=== PATIENT | male | born 1980 | race Caucasian/White ===

== ENCOUNTER 2025-09-23 11:48 | Inpatient (IN) ==
[2025-09-23 12:32] LABS: Appearance Urine Clear (Clear); Glucose Urine UA Negative (Negative)
[2025-09-23 12:43] LABS: Hematocrit (blood only) 44.7 % (42.0-52.0); Hemoglobin 15.7 g/dl (14.0-18.0); Immature Granulocytes # (auto) 0.03 K/uL (0.01-0.20); Immature Granulocytes % (auto) 0.4 %; Mean Corpuscular Hemoglobin 28.6 pg (25.0-34.0); Mean Corpuscular Volume 81.6 fL (80.0-100.0); Platelet Count 279 K/uL (130-400); RDW Standard Deviation 36.0 fL (36.4-46.3); Red Blood Count 5.48 M/uL (4.70-6.10); White Blood Count 8.45 K/ul (4.8-10.8)
--- NOTE | 2025-09-23 12:50 | XRay Report ---
XR chest 1V portable CLINICAL HISTORY: pain COMPARISON STUDY: 12/15/2024 FINDINGS: Heart size and pulmonary vasculature are normal. No consolidation or pleural effusion. No p neumothorax. IMPRESSION: No acute findings. ACT 112: Negative or not required by law. Electronically signed by: Shravan Xavier M.D. 09/23/2025 12:49 PM
--- NOTE | 2025-09-23 12:56 | Emergency Department Note ---
Impression & Plan Paranoid, Acute anxiety, Chest pain, Delusions ED Provider Note NAME: SIRIA MAYER AGE: 45 SEX: M : 1980 ARRIVES VIA: Ambulance INFORMANT: Patient, the patient's father ED PROVIDER(S): Vincenzo Angela DO CHIEF COMPLAINT: Mental health evaluation HPI: The patient is a 45-year-old male who presented to the emergency department for mental health evaluation. The patient has been experiencing chest pain and anxiety. The patient thinks he is having an anxiety attack. He was seen in our facility recently for similar complaints. The patient's father came in the emergency department with him. He did arrive via ambulance. The patient denies having any difficulty breathing. He denies having any chest pain at this time. He does complain of anxiety. He also is having delusions. The patient is hearing voices and thinks that he is God. The patient denies any suicidal homicidal ideation. ROS: See above HPI for pertinent positives & negatives. A total of 10 systems reviewed and were otherwise negative. PAST MEDICAL HISTORY: See Below PAST SURGICAL HISTORY: See Below FAMILY HISTORY: See Below SOCIAL HISTORY: See Below HOME MEDICATIONS: See Below ALLERGIES: See Below VITALS: See Below PHYSICAL EXAMINATION: GENERAL: Patient is awake alert in no acute distress patient is resting comfortably and showing no signs of anxiety EYES: The conjunctivae are clear. The pupils are round and reactive. EARS, NOSE, MOUTH AND THROAT: The nose is without any evidence of any deformity. NECK: The neck is nontender and supple. RESPIRATORY: Normal respiratory effort is noted there is no evidence of wheezing rhonchi or rales CARDIOVASCULAR: Regular rate and rhythm noted there no murmurs rubs or gallops normal S1 normal S2. GASTROINTESTINAL: The abdomen is soft. Abdomen is nontender. MUSCULOSKELETAL/EXTREMITIES: There is no evidence of gross deformity full range of motion is noted in the hips and shoulders. SKIN: There is no obvious evidence of any rash. There are no petechiae, pallor or cyanosis noted. NEUROLOGIC: Patient is awake alert and oriented x3 strength is symmetric patellar reflexes are 2+ bilaterally PSYCH: The patient's affect is animated. The patient makes good eye contact mostly evaluation. Patient states that he is God and he is hearing voices from God as well. MEDICAL DECISION MAKING: The patient is a 45-year-old male who presented to the emergency department by ambulance. The patient was having anxiety. He was seen in our facility recently for similar complaints. The patient did have a full workup over the weekend but ultimately was found to be a good candidate for outpatient management. He returns today because of ongoing symptoms. His father is with him and is requesting evaluation and possible inpatient management. The patient was not complaining of chest pain but also anxiety. He has had delusions and hearing voices. The patient was medically cleared in the emergency department again. I did review the patient's previous workup which did include a CT of the brain. He was treated with anxiety medication in the emergency department. Ultimately the patient was felt to be a good candidate for inpatient management. He was agreeable to this plan. The patient was evaluated by the mental-health window caser. He is pending evaluation by [facility] S. Triage Nursing notes reviewed. Prior medical records reviewed Vital Signs: reviewed and remarkable for hypertension. Differential diagnosis: Mood disorder, infection, hypoglycemia, electrolyte abnormalities, cardiac sources, intracerebral event, toxicologic, trauma, neurologic, as well as other pathologies. ER treatment provided: See below Diagnostics interpreted by me: ECG: EKG was obtained in the emergency department. My interpretation is normal sinus rhythm at 89 bpm. There was no ectopy. There was no acute ST segment abnormalities noted. This was compared to a tracing from September 21, 2025. No changes were noted. Cardiac Monitoring: An order was placed for continuous cardiac monitoring. The monitor shows a rate of 76 bpm with sinus rhythm. Laboratory studies: As stated above and show below. Imaging studies: See below. Radiographic imaging was reviewed by myself Consultation(s): The patient was evaluated by the mental health window caser in the emergency department. The patient was signed out to Dr. Paul at change of shift. Please see his note for further disposition and treatment. Past Med/Surg History Problem List (Updated 09/23/25 @ 16:37 by Vincenzo Angela DO) Delusions (Acute) Chest pain (Acute) Acute anxiety (Acute) Acute post-traumatic stress disorder (Acute) Anxiety (Acute) Paranoid (Acute) Social History Smoking Status: Former smoker Hx Alcohol Use: No Hx Substance Use: No Preferred Language: Jamaican Feels Safe at Home: Yes Gender Identity: Female Allergies Allergies Allergy/AdvReac Type Severity Reaction Status Date / Time [id number] Allergy Unknown Uncoded 10/11/03 21:48 Home Meds Home Medications Medication Instructions Recorded Confirmed None (Patient States No Home Meds) ##0 05/26/06 Previous Rx's Medication Instructions Recorded hydroxyzine HCl 25 mg tablet 25 mg PO BID PRN anxiety #14 tabs 09/22/25 Results & Data (ED) Vital Signs Vital Signs - 24 hr 09/23/25 12:06 09/23/25 12:24 09/23/25 14:00 Temperature 36.5 C Temperature Source Oral Pulse Rate 87 85 Pulse Rate [Apical] 76 Respiratory Rate 14 14 Respiratory Effort / Characteristics Respiratory Depth Deep Respiratory Pattern Regular Blood Pressure 162/84 H Blood Pressure [Right Arm] 99/73 L Blood Pressure Mean 110 Blood Pressure Mean [Right Arm] 81 Pulse Oximetry 100 93 Oxygen Delivery Method Room Air Room Air Sepsis Recent Fever Within 48 Hours No Sepsis New/Unexplained Change in Mental Status N/A Sepsis Action Taken by Nursing No Action Required 09/23/25 16:00 Temperature Temperature Source Pulse Rate Pulse Rate [Apical] 76 Respiratory Rate 16 Respiratory Effort / Characteristics Non-Labored Spontaneous Respiratory Depth Respiratory Pattern Blood Pressure Blood Pressure [Right Arm] 142/84 H Blood Pressure Mean Blood Pressure Mean [Right Arm] 103 Pulse Oximetry 100 Oxygen Delivery Method Room Air Sepsis Recent Fever Within 48 Hours Sepsis New/Unexplained Change in Mental Status Sepsis Action Taken by Half-Way Medications Current Medication List: was personally reviewed by me Laboratory Data Attestation: I reviewed the patient's lab results. 09/23/25 12:26 09/23/25 12:26 Lab Results 09/23/25 09/23/25 Range/Units 11:59 12:26 WBC 8.45 (4.8-10.8) K/ul RBC 5.48 (4.70-6.10) M/uL Hgb 15.7 (14.0-18.0) g/dl Hct 44.7 (42.0-52.0) % MCV 81.6 (80.0-100.0) fL MCH 28.6 (25.0-34.0) pg MCHC 35.1 (32.0-36.0) g/dL RDW Std Deviation 36.0 L (36.4-46.3) fL RDW Coeff of Delphine 12.2 (11.5-14.5) % Plt Count 279 (130-400) K/uL MPV 10.0 (9.4-12.4) fL Immature Gran % (Auto) 0.4 % Neut % (Auto) 71.8 % Lymph % (Auto) 18.3 % [place] % (Auto) 8.6 % Eos % (Auto) 0.1 % Baso % (Auto) 0.8 % Neut # (Auto) 6.06 (1.40-6.50) K/uL Lymph # (Auto) 1.55 (1.20-3.40) K/uL [place] # (Auto) 0.73 H (0.11-0.59) K/uL Eos # (Auto) 0.01 (0.00-0.50) K/uL Baso # (Auto) 0.07 (0.00-0.20) K/uL Immature Gran # (Auto) 0.03 (0.01-0.20) K/uL Sodium 137 (136-145) mmol/L Potassium 3.7 (3.5-5.1) mmol/L Chloride 104 (98-107) mmol/L Carbon Dioxide 21 (21-32) mmol/L Anion Gap 12 H (3-11) BUN 16 (6-23) mg/dl Creatinine 1.08 (0.6-1.4) mg/dl Est Cr Clr Drug Dosing Not Reportable eGFR 86.78 BUN/Creatinine Ratio 14.8 (10-20) Glucose 91 (70-99(Fasting)) mg/dl Calcium 9.8 (8.6-10.3) mg/dl Total Bilirubin 0.7 (0.2-1.0) mg/dl AST 16 (13-39) U/L ALT 17 (7-52) U/L Alkaline Phosphatase 33 L (34-104) U/L Troponin I High Sens 3.0 (0-20) pg/ml Total Protein 7.6 (6.0-8.3) gm/dl Albumin 4.7 (3.4-5.0) gm/dl Globulin 2.9 (2.5-4.0) gm/dl Albumin/Globulin Ratio 1.6 (0.9-2) TSH 1.247 (0.300-4.500) uIu/ml Urine Color Yellow Urine Appearance Clear (Clear) Urine pH 6.0 (4.5-7.5) Ur Specific [place] 1.019 (1.000-1.030) Urine Protein Negative (Negative) Urine Glucose (UA) Negative (Negative) Urine Ketones Trace H (Negative) Urine Blood Negative (Negative) Urine Nitrite Negative (Negative) Urine Bilirubin Negative (Negative) Urine Urobilinogen Negative (Negative) Ur Leukocyte Esterase Negative (Negative) Urine Comment Salicylates < 3.0 L (3.0-30) mg/dl Urine Opiates Screen Neg (Neg) Ur Methadone, Qual Neg (Neg) Urine Fentanyl Screen Neg (Neg) Acetaminophen < 3 L (10-30) ug/ml Urine Barbiturates Neg (Neg) Ur Phencyclidine (PCP) Neg (Neg) U Amphetamin/Meth Scrn Neg (Neg) MDMA (Ecstasy) Screen Neg (Neg) U Benzodiazepines Scrn Neg (Neg) Ur Cocaine Metabolite Neg (Neg) U Marijuana (THC) Screen Neg (Neg) Ethyl Alcohol mg/dL < 10.0 (<10.0) mg/dl SARS-CoV-2, RNA, NAAT NEGATIVE (NEGATIVE) Administered Medications Discontinued Medications Lorazepam (Lorazepam 1 Mg Tab) 1 mg PO NOW STA Stop: 09/23/25 13:02 Last Admin: 09/23/25 13:05 Dose: 1 mg Documented By: QUAN Imaging Data Attestation: I personally reviewed and interpreted this imaging study as follows: My Impression: 1 view chest x-ray was obtained in the emergency department. My interpretation is no free air or definite infiltrate, final report below. Radiologist's Impression: Chest X-Ray 09/23/25 12:17 XR chest 1V portable CLINICAL HISTORY: pain COMPARISON STUDY: 12/15/2024 FINDINGS: Heart size and pulmonary vasculature are normal. No consolidation or pleural effusion. No pneumothorax. IMPRESSION: No acute findings. ACT 112: Negative or not required by law. Electronically signed by: Shravan Xavier M.D. 09/23/2025 12:49 PM Discharge Plan Visit Data Chief Complaint: Anxiety Stated Complaint: ANXIETY ED Provider: Vincenzo Angela Discharge Problem: Paranoid, Acute anxiety, Chest pain, Delusions Patient Disposition: Still a Patient Condition: Good Forms Stand Alone Forms: My [facility] Posterous, Suicide Prevention Resources Prescriptions Prescriptions: No Action None (Patient States No Home Meds) . Qty: 0 hydroxyzine HCl 25 mg tablet 25 mg PO BID PRN (Reason: anxiety) Qty: 14 0RF Referrals Referrals: Unknown,Unknown [] -
[2025-09-23] MEDS: LORazepam 1 MG TAB PO STA (13:05)
[2025-09-23 13:12] LABS: Amphetamines+Metham, Urine Neg (Neg); MDMA (Ecstacy), Urine Neg (Neg); Marijuana, Urine Neg (Neg)
[2025-09-23 13:14] LABS: Albumin Level 4.7 gm/dl (3.4-5.0); Anion Gap 12 (3-11); Bilirubin,Total 0.7 mg/dl (0.2-1.0); Calcium 9.8 mg/dl (8.6-10.3); Carbon Dioxide 21 mmol/L (21-32); Chloride 104 mmol/L (98-107); Potassium 3.7 mmol/L (3.5-5.1); Sodium 137 mmol/L (136-145)
[2025-09-23 13:18] LABS: Thyroid Stimulating Hormone 1.247 uIu/ml (0.300-4.500)
[2025-09-23 13:20] LABS: Alanine Aminotransferase 17 U/L (7-52); Albumin Globulin Ratio 1.6 (0.9-2); Alkaline Phosphatase 33 U/L (34-104); Blood Urea Nitrogen 16 mg/dl (6-23); Globulin 2.9 gm/dl (2.5-4.0); Glucose 91 mg/dl (70-99(Fasting)); Total Protein 7.6 gm/dl (6.0-8.3)
[2025-09-23 13:23] LABS: Acetaminophen < 3 ug/ml (10-30); Salicylate < 3.0 mg/dl (3.0-30)
[2025-09-23] MEDS ORDERED: SODIUM CHLORIDE 0.65% NA SOLN 45 ML (OCEAN) PRN (22:16)
[2025-09-23] MEDS ORDERED: BISMUTH SUBSALICYLATE 262 MG CHEW PO PRN (22:16)
[2025-09-23] MEDS ORDERED: ALUMINUM/MAGNESIUM SUSP 30 ML UDC PO PRN (22:16)
[2025-09-23] MEDS ORDERED: MAGNESIUM HYDROXIDE SUSP 30 ML UDC PO PRN (22:16)
[2025-09-23] MEDS: LORazepam 1 MG TAB PO PRN (23:25)
--- NOTE | 2025-09-24 08:51 | History & Physical ---
Date of Service September 24, 2025 Impression / Recommendations Impression OLIVERIO MAYER is a 45-year-old man who currently lives in [place] with his and four children, has no known psychiatric history, and was admitted on 09/23/25 21:10 on a 302 involuntary commitment for psychosis with paranoia. Diagnostically consistent with unspecified psychosis with differential including bipolar affective disorder current episode of maribell (paranoia, poor sleep, recent rapid speech, hyperreligious delusions, increased activity at home of running around the house but also with no family nor personal history of BPAD which is atypical to first present at age 45) versus primary psychotic disorder (less likely given his age and no prior history) versus brief psychotic disorder 2/2 insomnia/anxiety versus delusional disorder substance-induced (unlikely given denial of recent substance use, negative UDS) versus secondary to a medical cause (could explain new onset at his age but no focal neurological deficits, normal head CT, labwork unrevealing to date for infectious workup incl uding tic borne illnesses & no reason to suspect HIV/syphilis, heavy metal panel pending, no known risk factors for vitamin deficiencies, no current evidence for delirium, labwork stable and medical stable from perspective of multiple ED workups in recent days). Discussed medication treatment options in detail. Discussed risks, benefits and alternatives. Patient would like to start and consented to olanzapine for unspecified psychosis and insomnia and ativan prn for anxiety/insomnia. Reviewed side effects including but not limited to: movement (TD, NMS), cardiac (QTc prolongation), and metabolic (stroke, insulin resistance) and necessity for fasting lipid and glucose labwork and AIMS done with score of 0. MNPR-psychosis with prominent paranoia and focus on limiting sleep disruptions Overall I spent a total of 75 minutes for this admission including review of chart records, review of labwork, direct evaluation of the patient, counseling the patient, ordering medication, risk assessment, discussion with the psychiatric liason RN and documentation in the electronic health record. (1) Unspecified psychosis not due to a substance or known physiological condition: (2) Insomnia: (3) Delusions: (4) Anxiety: (5) Paranoid: Plan 09/24/2025: The patient was admitted to the [facility]) on q15 min checks (behavioral with suicide precautions) for safety. The patient will participate in group, recreational, and milieu therapies and will be offered additional individual and family sessions as clinically appropriate. -Start olanzapine 10mg HS -Ativan 1mg BID prn for anxiety/restlessness -fasting lipid panel, HbA1c, Vit D, Vit B12, folate, ESR, CRP -will hold off on HIV and syphilis testing at this point as he denies any risk for exposure Inventory Assets Strengths: supportive relationships, engaging so far in inpatient treatment despite 302 status Needs: safety and stabilization, medication adjustment, additional coping skills, increased outpatient services Suicide Risk Level Suicide Risk Level: Moderate (q15 min suicide checks) (denies SI but with new psychosis and periods of anxiety with panic attacks, feels safe in the hospital and feels able to alert staff if he needs support) Risk Factors Assessment Male: Yes : Yes Do You Have Access To A Gun?: No Health Problems: No Mental Health Diagnoses: Yes Substance Use Disorders: No Previous Attempt: No Family History of Suicide: No Previous Psychiatric Hospitalization: No Hopelessness: No Protective Factors Assessment Baptism Beliefs: Yes : Yes Responsible for Young Children: Yes Employed: Yes Stable Relationships: Yes Supportive Family: Yes Psychiatric History Identifying Data OLIVERIO MAYER is a 45-year-old man who currently lives in [place] with his and four children, has no known psychiatric history, and was admitted on 09/23/25 21:10 on a 302 involuntary commitment for psychosis with paranoia. Chief Complaint "I don't remember saying that". History of Present Illness Haider presents for psychiatric admission on an involuntary commitment following concerns for repeated ED visits over the last 3 days, insomnia, increased amish beliefs, hallucinations, paranoia and delusions in the context of social media triggers and sleep disturbance. Review of his ED notes over the past three days are notable for fears that the FBI has been poisoning him, worried he may have fathered children during high school that he doesn't know about, panic attacks, fear his son had been poisoned, and hearing the voice of God. Today he reports that his current difficulties began approximately a week ago when he saw pictures on Facebook of people he recognized which triggered memories of past relationships and led him to wonder if those experiences were "done on purpose"and " intentionally to mess with my head later on". He states he has decided to "delete Facebook and just live my life" as a result. Will has been experiencing significant insomnia for about 1 week prior to admission sleeping only a couple of hours per night with last night being the first full night of sleep he's had after taking prn doses of ativan and haldol. He reports increased anxiety during this period of insomnia. He denies any history of depression stating "I do not get like, depressed and have bad thoughts or anything. I just usually work with my life". He also denies any prior episodes of insomnia or psychiatric history describing this is his first experience with such symptoms. He denies any confusion with his poor sleep. He attributes his distress to looking through Facebook and seeing content related to "the kind of life I used to live" and realizing "there is kids out there that I will probably never know" which he believes "set me off". However reflects that he feels like he is just going to move past this now. He reports no other recent stressors besides discovering this content on social media. When asked about references to discussions he had with the ED case management about a friend who recently he states this was "a few years back" and does not identify this is a current stressor. Asked about recent increase in amish beliefs and hearing the voice of God he notes "I do not remember saying that" and denies any current amish beliefs. He expresses concerns about possibly having diabetes referencing that his primary care provider might be concerned about this and that his grandmother and maybe mother might have had diabetes. However he does not identify any current physical symptoms or issues that he is having besides the poor sleep. He denies any history of substance use disorder stating he quit drinking alcohol "a few months ago" after previously drinking "a few days a week". He denies any history of IV drug use nor any reason to suspect he could have ever been exposed to HIV or syphilis or other infectious diseases. He denies any symptoms of depression nor suicidal thoughts nor homicidal thoughts. He denies any side effects from the medication last night and is glad to have slept. He references that he might prefer not to take medication but is agre eable to trying olanzapine tonight and having Ativan available as needed as he wants to continue to sleep. He is not currently prescribed any psychiatric medications. Psychiatric ROS notable for no current nor history of symptoms of maribell, psychosis, PTSD, OCD nor eating disorder. Additional information per ED CM notes on 09/23/2025: "Met with patient to complete MH evaluation. Patient presented to ED with his father. He reports he was driving to work and began feeling anxious, panicked and had numbness to his hands and feet. He began having chest pain, and an ambulance was called. Patient states he has been to the ED the last three days with paranoia and anxiety. Patient very slow to answer, disorganized thoughts, and maintained prolonged eye contact. Patient expressed frustration when asked questions. He reports no previous MH history. He has no diagnosis. No previous inpatient treatment. Patients father answered many questions asked of patient. When asked who farooq ent lives with he named his step son and his , but needed guidance with mentioning his other three children. Patient denies any D/A use. No medication. No outside providers. Patient reports no legal issues. When asked about stressors patient began to panic, stating he needed time to think. Patients father stated he believes patient has been contacted on facebook by an individual who claims patient is her father. This has been causing issues between patient and his . Patient denies any SIB. No SI. No HI. He denies any health issues. He is unsure of a mental health history within his family. Patient denies aggression/violence. Patient reports a poor appetite. He states he has not been sleeping and is unsure when the last time he slept was. He states he has not been sleeping because he has been unable to shut his mind off. Patient reports feeling that his mind is wondering off, and that he cannot keep his thoughts straight. He reports paranoia, and feeling that someone is out to get him. Patient made mention of a friend Terrence who he believes set up a satanic cult that has been screwing with his head. He believes Terrence and his cult are attacking him on facebook, and are sharing pictures of kids online who look like him. Patient reports he has been doing a lot of reading in regards to adventist, and that he has been hearing spiritual voices. Patient reports the voices tell him to pray to God with all your heart and soul, and he repeated this three times. When asked if the voices are telling him to hurt himself or someone else, patient laughed and stated I am God. Patient denies access to any guns/weapons. Patient reported feeling very overwhelmed and anxious, he asked for medication to help him relax and sleep. Patient feels he is in need of inpatient treatment for his mental health at this time. He has had no recent travel. No illnesses or diseases. " and "Following discussion with ED CM/[facility] [place] Liaison/patient's family, it became clear that Oliverio was not voluntary for inpatient psychiatric treatment as originally thought. It appears that his paranoia and confusion have worsened throughout his ED course. Involuntary commitment/302 was petitioned for by this business case analyst encompassing concerns from the last three days of ED presentations: "Oliverio has presented to the Emergency Department three times over the last three consecutive days (Sep. , , and ) with complaints related to anxiety and paranoia. He holds persecutory delusions regarding the FBI and family friends being out to get him. He recently found out distressing news regarding parenting a child and has been spiraling since. He carries no mental health diagnoses, including psychosis. Beto family is extremely concerned about his acute change in personality and behavior. While initially requesting help and inpatient treatment, he grew increasingly paranoid and suspicious. He is forgetful of information and slow to respond to questions. Oliverio has had three medical workups at this point including a CT scan of his head. No medical abnormalities were found. On Tuesday, Oliverio was convinced that he was being poisoned and needed to keep running until the poison was out of his body. He has been sending family and friends text messages showing increased amish preoccupation and persecutory delusions. It is the opinion of this petitioner that Oliverio is experiencing psychosis with marked decompensation and will be at imminent risk of or serious bodily injury without the continued care and supervision of others. Having never experienced psychosis before, psychiatric intervention is necessary. Oliverio reports that prior to today, he was unsure when the last time he slept was. He reports he hasnt been eating and when he checked in on September 21, it was because he believed he was about to and was being poisoned. He attributed his friends recent to being murdered by the FBI and believed they were coming after him next. He notes he feels he was poisoned at a bar in May but was manipulated into thinking there was nothing wrong with him. Today, he was driving to work and called 911 due to anxiety and panic. He states he has been hearing spiritual voices telling him pray to God with all your heart and soul. When asked if the voices tell him to do anything else, he responded, I am God." Past Psychiatric History Current Psychiatric Diagnosis: NONE Outpatient Services: none Previous Psych Admissions: none Do You Have Access To A Gun?: No History of Previous Suicide Attempt: No Past Medication Trials: none Past Head Trauma/Neuro History History of Concussion/Seizure: Yes (no seizures, concussion in his youth) Allergies Allergy/AdvReac Type Severity Reaction Status Date / Time [id number] Allergy Unknown Uncoded 10/11/03 21:48 Home Medications Medication Instructions Recorded Confirmed Type None (Patient States No Home Meds) ##0 05/26/06 History hydroxyzine HCl 25 mg tablet 25 mg PO BID PRN anxiety #14 tabs 09/22/25 Rx Family History Family History of: Anxiety (maternal and paternal side) Alcohol History Hx of Alcohol Use Over the Past 12 Months: No AUDIT Total Score: 0 He denies any alcohol use in the last few weeks. Unclear how much he was drinking prior to this, he reports drinking "a few" days per week. Denies history of problematic drinking or legal charges/DUI or negative consequences in the past from alcohol use Smoking Use Have You Smoked or Used Tobacco Products in the Last 30 Days: No Smoking Status: Former smoker Substance History Hx of Prescription Med Misuse Over the Past 12 Months: No Hx of Over the Counter Med Misuse Over the Past 12 Months: No Hx of Inhalent Misuse Over the Past 12 Months: No Hx of Organic Substance Use Over the Past 12 Months: No Hx of Illegal Substances/Street Drug Use Over Past 12 Months: No Problems as a Result of Past Substance Use: None Identified Personal History Living Arrangements: Home 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[employer]) Marital Status: Number Of Children: 4-including step-child Beliefs That Will Affect Care: None Current Legal Problems: No Hx Legal Problems: No Hx Traumatic Life Events: No Patient History Social History Smoking Status: Former smoker Hx Alcohol Use: No Hx Substance Use: No Preferred Language: Northern Irish Communication Ability: Effective Supervisor Pipeline Maintenance Required: No Beliefs That Will Affect Care: None Feels Safe at Home: Yes Gender Identity: Male Assistive Devices: None Review of Systems Review of Systems: All systems reviewed & are unremarkable except as noted in HPI & below Physical Exam Psychiatric: Orientation: alert, oriented x 3 and + guarded Apperance: appropriately dressed and appropriately groomed Eye Contact: + fair eye contact Motor Behavior: no abnormal motor movements Speech: normal rate/rhythm/volume of speech Affect: + anxious affect; + mood not congruent with affect Mood: + anxious mood; no depressed mood Thought Process: + concrete thought process Thought Content: + paranoid (concerned about FBI, poisoning, wonders if he's fathered children via FB ) and + delusions (reported beliefs about being poisoned in recent days, belief he is God) Suicidal Thoughts: denies suicidal thoughts, denies suicidal plan and denies suicidal intent Homicidal Thoughts: denies homicidal thoughts Hallucinations: + auditory hallucinations (reported in the ED, doesn't appear to be responding to internal stimuli tod); no visual hallucinations Cognition: remote memory grossly intact and language grossly intact; + recent memory not intact and + attention not intact Estimated Intelligence: consistent with education level Insight: + limited insight Judgment: + limited judgement Vital Signs (Past 24 Hours): Last Vital Signs Temp 36.5 C 09/23/25 22:21 Pulse 86 09/23/25 22:21 Resp 18 09/23/25 22:21 BP 165/92 H 09/23/25 22:21 Pulse Ox 100 09/23/25 22:21 O2 Del Method Room Air 09/23/25 22:21 Exam Statement: A physical exam was performed in the ED by Dr. Angela for the purposes of medical clearance. I accept that physical as correct and adequate for the purposes of the inpatient physical exam. Results & Data ([facility]) Laboratory Results Laboratory Results - last 24 hr 09/23/25 09/23/25 09/23/25 11:59 12:26 12:56 WBC 8.45 RBC 5.48 Hgb 15.7 Hct 44.7 MCV 81.6 MCH 28.6 MCHC 35.1 RDW Std Deviation 36.0 L RDW Coeff of Delphine 12.2 Plt Count 279 MPV 10.0 Immature Gran % (Auto) 0.4 Neut % (Auto) 71.8 Lymph % (Auto) 18.3 Ellis % (Auto) 8.6 Eos % (Auto) 0.1 Baso % (Auto) 0.8 Neut # (Auto) 6.06 Lymph # (Auto) 1.55 Ellis # (Auto) 0.73 H Eos # (Auto) 0.01 Baso # (Auto) 0.07 Immature Gran # (Auto) 0.03 Sodium 137 Potassium 3.7 Chloride 104 Carbon Dioxide 21 Anion Gap 12 H BUN 16 Creatinine 1.08 Est Cr Clr Drug Dosing Not Reportable eGFR 86.78 BUN/Creatinine Ratio 14.8 Glucose 91 Calcium 9.8 Total Bilirubin 0.7 AST 16 ALT 17 Alkaline Phosphatase 33 L Troponin I High Sens 3.0 Total Protein 7.6 Albumin 4.7 Globulin 2.9 Albumin/Globulin Ratio 1.6 TSH 1.247 Urine Color Yellow Urine Appearance Clear Urine pH 6.0 Ur Specific [place] 1.019 Urine Protein Negative Urine Glucose (UA) Negative Urine Ketones Trace H Urine Blood Negative Urine Nitrite Negative Urine Bilirubin Negative Urine Urobilinogen Negative Ur Leukocyte Esterase Negative Urine Comment Salicylates < 3.0 L Urine Opiates Screen Neg Ur Methadone, Qual Neg Urine Fentanyl Screen Neg Acetaminophen < 3 L Urine Barbiturates Neg Ur Phencyclidine (PCP) Neg U Amphetamin/Meth Scrn Neg MDMA (Ecstasy) Screen Neg U Benzodiazepines Scrn Neg Ur Cocaine Metabolite Neg U Marijuana (THC) Screen Neg Ethyl Alcohol mg/dL < 10.0 Arsenic Pending Lead Pending Mercury Pending Anaplasma Smear A. phagocytophilum DNA Babesia Smear Babesia microti DNA PCR Lyme Disease Screen Ehrlichia DNA (PCR) Q Fever Phase I IgG Ab Q Fever Phase I IgM Ab Q Fever Phase II IgG Ab Q Fever Phase II IgM Ab Rickettsia IgG Ab Rickettsia IgM Ab SARS-CoV-2, RNA, NAAT NEGATIVE Typhus Fever IgG Ab Typhus Fever IgM Ab 09/23/25 21:17 WBC RBC Hgb Hct MCV MCH MCHC RDW Std Deviation RDW Coeff of Delphine Plt Count MPV Immature Gran % (Auto) Neut % (Auto) Lymph % (Auto) Ellis % (Auto) Eos % (Auto) Baso % (Auto) Neut # (Auto) Lymph # (Auto) Ellis # (Auto) Eos # (Auto) Baso # (Auto) Immature Gran # (Auto) Sodium Potassium Chloride Carbon Dioxide Anion Gap BUN Creatinine Est Cr Clr Drug Dosing eGFR BUN/Creatinine Ratio Glucose Calcium Total Bilirubin AST ALT Alkaline Phosphatase Troponin I High Sens Total Protein Albumin Globulin Albumin/Globulin Ratio TSH Urine Color Urine Appearance Urine pH Ur Specific [place] Urine Protein Urine Glucose (UA) Urine Ketones Urine Blood Urine Nitrite Urine Bilirubin Urine Urobilinogen Ur Leukocyte Esterase Urine Comment Salicylates Urine Opiates Screen Ur Methadone, Qual Urine Fentanyl Screen Acetaminophen Urine Barbiturates Ur Phencyclidine (PCP) U Amphetamin/Meth Scrn MDMA (Ecstasy) Screen U Benzodiazepines Scrn Ur Cocaine Metabolite U Marijuana (THC) Screen Ethyl Alcohol mg/dL Arsenic Lead Mercury Anaplasma Smear See Comment A. phagocytophilum DNA Pending Babesia Smear See Comment Babesia microti DNA PCR Pending Lyme Disease Screen Negative Ehrlichia DNA (PCR) Pending Q Fever Phase I IgG Ab Pending Q Fever Phase I IgM Ab Pending Q Fever Phase II IgG Ab Pending Q Fever Phase II IgM Ab Pending Rickettsia IgG Ab Pending Rickettsia IgM Ab Pending SARS-CoV-2, RNA, NAAT Typhus Fever IgG Ab Pending Typhus Fever IgM Ab Pending Current Inpatient Medications Current Inpatient Medications: Current Inpatient Medications Acetaminophen (Acetaminophen 325 Mg Tab) 650 mg PO Q4H PRN PRN Reason: Headache or Minor Fever Stop: 10/23/25 22:15 Al Hydrox/Mg Hydrox/Simethicone (Aluminum/Magnesium Susp 30 Ml Udc) 30 ml PO Q4H PRN PRN Reason: GI Upset Stop: 10/23/25 22:15 Bismuth Subsalicylate (Bismuth Subsalicylate 262 Mg Chew) 2 tab PO Q30M PRN PRN Reason: Loose Stool/Diarrhea Stop: 10/23/25 22:15 Haloperidol (Haloperidol 5 Mg Tab) 5 mg PO BID PRN PRN Reason: psychosis/aggression Stop: 10/23/25 22:11 Last Admin: 09/23/25 23:25 Dose: 5 mg Hydroxyzine HCl (Hydroxyzine Hcl 25 Mg Tab) 50 mg PO HSZ PRN PRN Reason: Insomnia Stop: 10/23/25 22:15 Hydroxyzine HCl (Hydroxyzine Hcl 25 Mg Tab) 25 mg PO Q4H PRN PRN Reason: Anxiety Stop: 10/23/25 22:15 Lorazepam (Lorazepam 1 Mg Tab) 1 mg PO BID PRN PRN Reason: agitation/ restlessness Stop: 10/23/25 22:10 Last Admin: 09/23/25 23:25 Dose: 1 mg Magnesium Hydroxide (Magnesium Hydroxide Susp 30 Ml Udc) 30 ml PO DAILY PRN PRN Reason: Constipation Stop: 10/23/25 22:15 Sodium Chloride (Sodium Chloride 0.65% Na Soln 45 Ml ([place])) 1 - 2 sprays NA PRN PRN PRN Reason: Nasal Dryness/Congestion Stop: 10/23/25 22:15
[2025-09-24] MEDS: OLANZapine 10 MG TAB PO SCH (20:56)
[2025-09-24] MEDS: ACETAMINOPHEN 325 MG TAB PO PRN (20:56)
[2025-09-25 08:38] LABS: Hemoglobin A1C 5.6 % (4.5-5.6)
--- NOTE | 2025-09-25 08:45 | Psychiatric Progress Note ---
Date of Service September 25, 2025 Impression / Recommendations Impression SIRIA MAYER is a 45-year-old man who currently lives in [place] with his and four children, has no known psychiatric history, and was admitted on 09/23/25 21:10 on a 302 involuntary commitment for psychosis with paranoia. Diagnostically consistent with unspecified psychosis with differential including bipolar affective disorder current episode of maribell (paranoia, poor sleep, recent rapid speech, hyperreligious delusions, increased activity at home of running around the house but also with no family nor personal history of BPAD which is atypical to first present at age 45) versus primary psychotic disorder (less likely given his age and no prior history) versus brief psychotic disorder 2/2 insomnia/anxiety versus delusional disorder substance-induced (unlikely given denial of recent substance use, negative UDS) versus secondary to a medical cause (could explain new onset at his age but no focal neurological deficits, normal head CT, labwork unrevealing to date for infectious workup incl uding tic borne illnesses & no reason to suspect HIV/syphilis, heavy metal panel pending, no known risk factors for vitamin deficiencies, no current evidence for delirium, labwork stable and medical stable from perspective of multiple ED workups in recent days). A: Ongoing paranoia and delusions but otherwise failr organized and improving sleep with olanzapine. Suspect he won't meet 303 criteria but will continue to monitor for any increased difficulty attending to his ADLs, SI or HI. Continue with current medications. Labwork reviewed and HbA1c and fasting lipids are stable for ongoing antipsychotic use. CRP and ESR are normal which significantly lessens concern for autoimmune contribution to symptoms. MNPR-psychosis with prominent paranoia and focus on limiting sleep disruptions Overall, I spent a total of 40 minutes on this case including meeting with the patient, reviewing the chart, nursing report, multidisciplinary team meeting, orders, and documentation. (1) Unspecified psychosis not due to a substance or known physiological condition: (2) Insomnia: (3) Delusions: (4) Anxiety: (5) Paranoid: Plan 09/25/2025: -Continue current medications and tx plan 09/24/2025: The patient was admitted to the [facility] ([facility] mental health unit) on q15 min checks (behavioral with suicide precautions) for safety. The patient will participate in group, recreational, and milieu therapies and will be offered additional individual and family sessions as clinically appropriate. -Start olanzapine 10mg HS -Ativan 1mg BID prn for anxiety/restlessness -fasting lipid panel, HbA1c, Vit D, Vit B12, folate, ESR, CRP -will hold off on HIV and syphilis testing at this point as he denies any risk for exposure Inventory Assets Strengths: supportive relationships, engaging so far in inpatient treatment despite 302 status Needs: safety and stabilization, medication adjustment, additional coping skills, increased outpatient services Suicide Risk Level Suicide Risk Level: Moderate (q15 min suicide checks) (denies SI but with new psychosis and periods of anxiety with panic attacks, feels safe in the hospital and feels able to alert staff if he needs support) Risk Factors Assessment Male: Yes : Yes Do You Have Access To A Gun?: No Health Problems: No Mental Health Diagnoses: Yes Substance Use Disorders: No Previous Attempt: No Family History of Suicide: No Previous Psychiatric Hospitalization: No Hopelessness: No Protective Factors Assessment Buddhist Beliefs: Yes : Yes Responsible for Young Children: Yes Employed: Yes Stable Relationships: Yes Supportive Family: Yes Interval History Identifying Information SIRIA MAYER is a 45-year-old man who currently lives in [place] with his and four children, has no known psychiatric history, and was admitted on 09/23/25 21:10 on a 302 involuntary commitment for psychosis with paranoia. Chief Complaint "Wonderful". Review of Systems Sleep Information Total Hours of Sleep: 6.75 Meal Information Percent Meal Consumed - Breakfast: 0 Percent Meal Consumed - Lunch: 100 Percent Meal Consumed - Dinner: 90 Subjective Subjective Patient was seen & assessed and interval progress reviewed with treatment team. periods of paranoia yesterday. Attended groups and rated his mood "8/10" and "slightly anxious". Showered. His visited last evening. Watched TV this morning with a peer. Asked about facetiming his children. Mid-morning he became acutely distressed, attempted to run toward the locked unit door as staff were exiting expressing concerns that staff were leaving due to poison coming through air vents. He responded to staff redirection and then later accepted prn haldol and ativan and reported immense relief from this. In the afternoon he tells me his mood is "wonderful". he minimizes the events of the morning but does note some paranoia about why there is a vent in his bathroom and vaguely references that he worries about vents because of a friend who "works in [employer]". States he plans to "I think I'll be fine, I'll just not go around him". He liked how well he slept with olanzapine. Denies any side effects from this. Physical Exam Psychiatric Orientation: alert, oriented x 3 and + guarded Apperance: appropriately dressed and appropriately groomed Eye Contact: + fair eye contact Motor Behavior: no abnormal motor movements Speech: normal rate/rhythm/volume of speech Affect: + anxious affect; + mood not congruent with affect Mood: + anxious mood; no depressed mood Thought Process: + concrete thought process Thought Content: + paranoid (poisoning) and + delusions (reported beliefs about being poisoned) Suicidal Thoughts: denies suicidal thoughts, denies suicidal plan and denies suicidal intent Homicidal Thoughts: denies homicidal thoughts Hallucinations: no auditory hallucinations and no visual hallucinations Cognition: recent memory grossly intact, remote memory grossly intact, attention grossly intact and language grossly intact Estimated Intelligence: consistent with education level Insight: + limited insight Judgment: + fair judgement Vital Signs (Past 24 Hours) Last Vital Signs Temp 36.1 C L 09/25/25 06:00 Pulse 118 H 09/24/25 15:41 Resp 16 09/25/25 06:00 BP 132/65 09/25/25 06:37 Pulse Ox 98 09/25/25 06:00 O2 Del Method Room Air 09/25/25 06:00 Results & Data ([facility]) Laboratory Results Laboratory Results - last 24 hr 09/25/25 08:04 ESR 15 Estimat Average Glucose 114 Hemoglobin A1c 5.6 C-Reactive Protein Pending Triglycerides Pending Cholesterol Pending VLDL Cholesterol, Calc Pending HDL Cholesterol Pending Cholesterol/HDL Ratio Pending Vitamin B12 Pending 25-OH Vitamin D Total Pending Folate Pending Current Inpatient Medications Current Inpatient Medications: Current Inpatient Medications Acetaminophen (Acetaminophen 325 Mg Tab) 650 mg PO Q4H PRN PRN Reason: Headache or Minor Fever Stop: 10/23/25 22:15 Last Admin: 09/24/25 20:56 Dose: 650 mg Al Hydrox/Mg Hydrox/Simethicone (Aluminum/Magnesium Susp 30 Ml Udc) 30 ml PO Q4H PRN PRN Reason: GI Upset Stop: 10/23/25 22:15 Bismuth Subsalicylate (Bismuth Subsalicylate 262 Mg Chew) 2 tab PO Q30M PRN PRN Reason: Loose Stool/Diarrhea Stop: 10/23/25 22:15 Haloperidol (Haloperidol 5 Mg Tab) 5 mg PO BID PRN PRN Reason: psychosis/aggression Stop: 10/23/25 22:11 Last Admin: 09/23/25 23:25 Dose: 5 mg Hydroxyzine HCl (Hydroxyzine Hcl 25 Mg Tab) 50 mg PO HSZ PRN PRN Reason: Insomnia Stop: 10/23/25 22:15 Hydroxyzine HCl (Hydroxyzine Hcl 25 Mg Tab) 25 mg PO Q4H PRN PRN Reason: Anxiety Stop: 10/23/25 22:15 Lorazepam (Lorazepam 1 Mg Tab) 1 mg PO BID PRN PRN Reason: agitation/restlessness Stop: 10/23/25 22:10 Magnesium Hydroxide (Magnesium Hydroxide Susp 30 Ml Udc) 30 ml PO DAILY PRN PRN Reason: Constipation Stop: 10/23/25 22:15 Olanzapine (Olanzapine 10 Mg Tab) 10 mg PO HS BRITANY Stop: 10/24/25 21:59 Last Admin: 09/24/25 20:56 Dose: 10 mg Sodium Chloride (Sodium Chloride 0.65% Na Soln 45 Ml ([place])) 1 - 2 sprays NA PRN PRN PRN Reason: Nasal Dryness/Congestion Stop: 10/23/25 22:15 Mental Health & Subst Abuse Tx Therapist Name of Therapist: N/A Community Relations Representative Name of Community Relations Representative: N/A Post Discharge Appointments Primary Care Physician Name Of Family Doctor/PCP: Dr. Katerin Huddleston
[2025-09-25 08:50] LABS: Cholesterol 209 mg/dl (0-200); HDL Cholesterol 42 mg/dl; Triglycerides 218 mg/dl (0-150)
[2025-09-25 09:15] LABS: Folate (Folic Acid),Ser orPlas 20.53 ng/ml (>5.38)
[2025-09-25 09:16] LABS: Vitamin B12 277.0 pg/ml (180-914)
[2025-09-25] MEDS: LORazepam 1 MG TAB PO PRN (10:46)
--- NOTE | 2025-09-26 08:13 | Psychiatric Progress Note ---
Date of Service September 26, 2025 Impression / Recommendations Impression SIRIA MAYER is a 45-year-old man who currently lives in [place] with his and four children, has no known psychiatric history, and was admitted on 09/23/25 21:10 on a 302 involuntary commitment for psychosis with paranoia. Diagnostically consistent with unspecified psychosis with differential including bipolar affective disorder current episode of maribell (paranoia, poor sleep, recent rapid speech, hyperreligious delusions, increased activity at home of running around the house but also with no family nor personal history of BPAD which is atypical to first present at age 45) versus primary psychotic disorder (less likely given his age and no prior history) versus brief psychotic disorder 2/2 insomnia/anxiety versus delusional disorder substance-induced (unlikely given denial of recent substance use, negative UDS) versus secondary to a medical cause (could explain new onset at his age but no focal neurological deficits, normal head CT, labwork unrevealing to date for infectious workup incl uding tic borne illnesses & no reason to suspect HIV/syphilis, heavy metal panel pending, no known risk factors for vitamin deficiencies, no current evidence for delirium, labwork stable and medical stable from perspective of multiple ED workups in recent days). A: Ongoing paranoia but participating in groups, socializing, attending to his ADLs and eating packaged foods. Continues to deny SI/HI/hallucinations no current criteria for 303 commitment, discussed and encouraged him to consider signing in voluntarily before 302 expires for ongoing monitoring, he states he'll consider this but he feels he'll be ready to discharge in two days when 302 expires. Tolerating medications without side effects. He utilized prn haldol today so given some ongoing paranoia will increase olanzapine tonight, which he consents to, in effort to reduce need for dual antipsychotic use. Prefer not to use prn olanzapine during the day due to sedating effects. Heavy metal testing was all normal. MNPR-psychosis with prominent paranoia and focus on limiting sleep disruptions Overall, I spent a total of 37 minutes on this case including meeting with the patient, reviewing the chart, nursing report, multidisciplinary team meeting, orders, and documentation. (1) Unspecified psychosis not due to a substance or known physiological condition: (2) Insomnia: (3) Delusions: (4) Anxiety: (5) Paranoid: Plan 09/26/2025: -Increase olanzapine to 20mg HS 09/25/2025: -Continue current medications and tx plan 09/24/2025: The patient was admitted to the [facility]) on q15 min checks (behavioral with suicide precautions) for safety. The patient will participate in group, recreational, and milieu therapies and will be offered additional individual and family sessions as clinically appropriate. -Start olanzapine 10mg HS -Ativan 1mg BID prn for anxiety/restlessness -fasting lipid panel, HbA1c, Vit D, Vit B12, folate, ESR, CRP -will hold off on HIV and syphilis testing at this point as he denies any risk for exposure Inventory Assets Strengths: supportive relationships, engaging so far in inpatient treatment despite 302 status Needs: safety and stabilization, medication adjustment, additional coping skills, increased outpatient services Suicide Risk Level Suicide Risk Level: Moderate (q15 min suicide checks) (denies SI but with new psychosis and periods of anxiety with panic attacks, feels safe in the hospital and feels able to alert staff if he needs support) Suicide Risk Level Comments: Risk Factors Assessment Male: Yes : Yes Do You Have Access To A Gun?: No Health Problems: No Mental Health Diagnoses: Yes Substance Use Disorders: No Previous Attempt: No Family History of Suicide: No Previous Psychiatric Hospitalization: No Hopelessness: No Protective Factors Assessment Yazidi Beliefs: Yes : Yes Responsible for Young Children: Yes Employed: Yes Stable Relationships: Yes Supportive Family: Yes Interval History Identifying Information SIRIA MAYER is a 45-year-old man who currently lives in [place] with his and four children, has no known psychiatric history, and was admitted on 09/23/25 21:10 on a 302 involuntary commitment for psychosis with paranoia. Chief Complaint "Good". Review of Systems Sleep Information Total Hours of Sleep: 7.5 Meal Information Percent Meal Consumed - Breakfast: 50 Percent Meal Consumed - Lunch: 100 Percent Meal Consumed - Dinner: 90 Subjective Subjective Patient was seen & assessed and interval progress reviewed with nursing and social work. Attending most groups. Appropriate yesterday afternoon. Watched TV with peers, showered unprompted. This morning awake early and watching TV. He questioned when his room had a lock or not a lock and wondered if there was something unusual about his room. Still some suspiciousness. Slept well overnight. This morning was observed smelling his breakfast and ate but only his banana and packaged items. He requested prn haldol mid-morning and found this helpful for anxiety/mild paranoia. He continued to attend groups and was appropriate with peers. This afternoon tells me he feels "good" and references that 'i'm getting sleep and I'm thinking clearly again". Contrasts this to his mind feeling "foggy" prior to admission. He's agreeable to olanzapine titration. He continues to deny SI, HI and hallucinations and doesn't appear to be responding to internal stimuli. Continues to state that "I feel safe". Physical Exam Psychiatric Orientation: alert, oriented x 3 and cooperative Apperance: appropriately dressed and appropriately groomed Eye Contact: good eye contact Motor Behavior: no abnormal motor movements Speech: normal rate/rhythm/volume of speech Affect: euthymic affect Mood: + anxious mood; no depressed mood Thought Process: clear/coherent thought process Thought Content: + paranoid (poisoning) Suicidal Thoughts: denies suicidal thoughts, denies suicidal plan and denies suicidal intent Homicidal Thoughts: denies homicidal thoughts Hallucinations: no auditory hallucinations and no visual hallucinations Cognition: recent memory grossly intact, remote memory grossly intact, attention grossly intact and language grossly intact Estimated Intelligence: consistent with education level Insight: + fair insight Judgment: + fair judgement Vital Signs (Past 24 Hours) Last Vital Signs Temp 36.1 C L 09/26/25 06:32 Pulse 77 09/26/25 06:32 Resp 16 09/26/25 06:32 BP 124/83 09/26/25 06:33 Pulse Ox 97 09/26/25 06:32 O2 Del Method Room Air 09/26/25 06:32 Results & Data ([facility]) Laboratory Results Laboratory Results - last 24 hr 09/23/25 09/25/25 12:56 08:04 ESR 15 Estimat Average Glucose 114 Hemoglobin A1c 5.6 C-Reactive Protein < 0.50 Triglycerides 218 H Cholesterol 209 H LDL Cholesterol, Calc 123 VLDL Cholesterol, Calc 44 H HDL Cholesterol 42 Cholesterol/HDL Ratio 5.0 Vitamin B12 277 25-OH Vitamin D Total 15.5 L Folate 20.53 Arsenic <3 Lead <1.0 Mercury <4 Current Inpatient Medications Current Inpatient Medications: Current Inpatient Medications Acetaminophen (Acetaminophen 325 Mg Tab) 650 mg PO Q4H PRN PRN Reason: Headache or Minor Fever Stop: 10/23/25 22:15 Last Admin: 09/24/25 20:56 Dose: 650 mg Al Hydrox/Mg Hydrox/Simethicone (Aluminum/Magnesium Susp 30 Ml Udc) 30 ml PO Q4H PRN PRN Reason: GI Upset Stop: 10/23/25 22:15 Bismuth Subsalicylate (Bismuth Subsalicylate 262 Mg Chew) 2 tab PO Q30M PRN PRN Reason: Loose Stool/Diarrhea Stop: 10/23/25 22:15 Haloperidol (Haloperidol 5 Mg Tab) 5 mg PO BID PRN PRN Reason: psychosis/aggression Stop: 10/23/25 22:11 Last Admin: 09/25/25 10:46 Dose: 5 mg Hydroxyzine HCl (Hydroxyzine Hcl 25 Mg Tab) 50 mg PO HSZ PRN PRN Reason: Insomnia Stop: 10/23/25 22:15 Hydroxyzine HCl (Hydroxyzine Hcl 25 Mg Tab) 25 mg PO Q4H PRN PRN Reason: Anxiety Stop: 10/23/25 22:15 Lorazepam (Lorazepam 1 Mg Tab) 1 mg PO BID PRN PRN Reason: agitation/restlessness Stop: 10/23/25 22:10 Last Admin: 09/25/25 10:46 Dose: 1 mg Magnesium Hydroxide (Magnesium Hydroxide Susp 30 Ml Udc) 30 ml PO DAILY PRN PRN Reason: Constipation Stop: 10/23/25 22:15 Olanzapine (Olanzapine 10 Mg Tab) 10 mg PO HS BRITANY Stop: 10/24/25 21:59 Last Admin: 09/25/25 21:01 Dose: 10 mg Sodium Chloride (Sodium Chloride 0.65% Na Soln 45 Ml ([place])) 1 - 2 sprays NA PRN PRN PRN Reason: Nasal Dryness/Congestion Stop: 10/23/25 22:15 Mental Health & Subst Abuse Tx Psychiatrist Name of Psychiatrist: Taz Graf Psychiatrist's Date Of Appointment With Psychiatric Provider: 12/09/24 Time of Appointment with Psychiatrist: 10:10 Psychiatric Appointment Comment: [address], [place] Therapist Name of Therapist: N/A Accounting Professional Name of Accounting Professional: N/A Post Discharge Appointments Primary Care Physician Name Of Family Doctor/PCP: Dr. Huddleston Primary Care Date of Future Appointment with PCP: 10/03 Time of Appointment with PCP: 3pm Contact Information Discharge Discharge Address: [address] [place] [address] [place] [id number]
--- NOTE | 2025-09-26 16:26 | Electrocardiogram Report ---
Test Reason : Blood Pressure : */* mmHG Vent. Rate : 89 BPM Atrial Rate : 89 BPM P-R Int : 122 ms QRS Dur : 90 ms QT Int : 350 ms P-R-T Axes : 71 63 26 degrees QTcB Int : 425 ms Normal sinus rhythm Normal ECG When compared with ECG of 21-Sep-2025 07:01, (unconfirmed) No significant change was found Confirmed by Jed Carlin ([id number]) on 09/26/2025 4:25:46 PM Referred By: Confirmed By: Jed Carlin
[2025-09-26] MEDS: OLANZapine 20 MG TABLET PO SCH (21:47)
--- NOTE | 2025-09-27 09:03 | Psychiatric Progress Note ---
Date of Service September 27, 2025 Impression / Recommendations Impression SIRIA MAYER is a 45-year-old man who currently lives in [place] with his and four children, has no known psychiatric history, and was admitted on 09/23/25 21:10 on a 302 involuntary commitment for psychosis with paranoia. Diagnostically consistent with unspecified psychosis with differential including bipolar affective disorder current episode of maribell (paranoia, poor sleep, recent rapid speech, hyperreligious delusions, increased activity at home of running around the house but also with no family nor personal history of BPAD which is atypical to first present at age 45) versus primary psychotic disorder (less likely given his age and no prior history) versus brief psychotic disorder 2/2 insomnia/anxiety versus delusional disorder substance-induced (unlikely given denial of recent substance use, negative UDS) versus secondary to a medical cause (could explain new onset at his age but no focal neurological deficits, normal head CT, labwork unrevealing to date for infectious workup incl uding tic borne illnesses & no reason to suspect HIV/syphilis, heavy metal panel pending, no known risk factors for vitamin deficiencies, no current evidence for delirium, labwork stable and medical stable from perspective of multiple ED workups in recent days). A: No evidence of paranoia today and no anxiety. 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 He continues to tolerate the medication well. Will leave it at current dose given no need for additional prns today. If daytime sedation worsens could reduce to 15mg HS on discharge. He doesn't meet 303 criteria and declines option for ongoing voluntary treatment so anticipate discharge tomorrow if symptoms remain well controlled. MNPR-psychosis with prominent paranoia and focus on limiting sleep disruptions Overall, I spent a total of 50 minutes on this case including meeting with the patient, reviewing the chart, nursing report, multidisciplinary team meeting, orders, and documentation and participation in family support meeting. (1) Unspecified psychosis not due to a substance or known physiological conditi on: (2) Insomnia: (3) Delusions: (4) Anxiety: (5) Paranoid: Plan 09/27/2025: -Start Vit D supplement 25mcg daily 09/26/2025: -Increase olanzapine to 20mg HS 09/25/2025: -Continue current medications and tx plan 09/24/2025: The patient was admitted to the [facility] ([facility] inpatient mental health unit) on q15 min checks (behavioral with suicide precautions) for safety. The patient will participate in group, recreational, and milieu therapies and will be offered additional individual and family sessions as clinically appropriate. -Start olanzapine 10mg HS -Ativan 1mg BID prn for anxiety/restlessness -fasting lipid panel, HbA1c, Vit D, Vit B12, folate, ESR, CRP -will hold off on HIV and syphilis testing at this point as he denies any risk f or exposure Inventory Assets Strengths: supportive relationships, engaging so far in inpatient treatment despite 302 status Needs: safety and stabilization, medication adjustment, additional coping skills, increased outpatient services Suicide Risk Level Suicide Risk Level: Low (q15 min observation checks) (consistently denies SI, anxiety lessening, no evidence for paranoia today, feels safe in the hospital a nd feels able to alert staff if he needs support) Suicide Risk Level Comments: Risk Factors Assessment Male: Yes : Yes Do You Have Access To A Gun?: No Health Problems: No Mental Health Diagnoses: Yes Substance Use Disorders: No Previous Attempt: No Family History of Suicide: No Previous Psychiatric Hospitalization: No Hopelessness: No Protective Factors Assessment Faith Beliefs: Yes : Yes Responsible for Young Children: Yes Employed: Yes Stable Relationships: Yes Supportive Family: Yes Interval History Identifying Information SIRIA MAYER is a 45-year-old man who currently lives in [place] with his and four children, has no known psychiatric history, and was admitted on 09/23/25 21:10 on a 302 involuntary commitment for psychosis with paranoia. Chief Complaint "Good". Review of Systems Sleep Information Total Hours of Sleep: 7.5 Meal Information Percent Meal Consumed - Breakfast: 10 Percent Meal Consumed - Lunch: 50 Percent Meal Consumed - Dinner: 100 Nutrition Comment: Subjective Subjective Patient was seen & assessed and interval progress reviewed with treatment team. Ate his lunch and dinner even unpackaged items like his soup. Visited with his and nom last evening. Suspicious yesterday of [facility] room but seems comfortable with his new room on the unit. He played chess with a peer. Showered unprompted. Completed his safety plan and this is reality-based. Rated his mood "8.5 and optimistic". Today he reports sleeping well and his mood is "good". [place] a little sedated this morning with higher dose of olanzapine but didn't cause him to struggle to wake up or have breakfast and is improving with time. Hasn't required any haldol prns today. Participating in groups with peers including path intelligence without any paranoia. Physical Exam Psychiatric Orientation: alert, oriented x 3 and cooperative Apperance: appropriately dressed and appropriately groomed Eye Contact: good eye contact Motor Behavior: no abnormal motor movements Speech: normal rate/rhythm/volume of speech Affect: euthymic affect Mood: no depressed mood and no anxious mood Thought Process: clear/coherent thought process Thought Content: reality based without delusions Suicidal Thoughts: denies suicidal thoughts, denies suicidal plan and denies suicidal intent Homicidal Thoughts: denies homicidal thoughts Hallucinations: no auditory hallucinations and no visual hallucinations Cognition: recent memory grossly intact, remote memory grossly intact, attention grossly intact and language grossly intact Estimated Intelligence: consistent with education level Insight: + fair insight Judgment: + fair judgement Vital Signs (Past 24 Hours) Last Vital Signs Temp 36.3 C L 09/27/25 06:31 Pulse 77 09/26/25 06:32 Resp 16 09/27/25 06:31 BP 123/72 09/27/25 06:32 Pulse Ox 97 09/27/25 06:31 O2 Del Method Room Air 09/27/25 06:31 Results & Data ([facility]) Current Inpatient Medications Current Inpatient Medications: Current Inpatient Medications Acetaminophen (Acetaminophen 325 Mg Tab) 650 mg PO Q4H PRN PRN Reason: Headache or Minor Fever Stop: 10/23/25 22:15 Last Admin: 09/24/25 20:56 Dose: 650 mg Al Hydrox/Mg Hydrox/Simethicone (Aluminum/Magnesium Susp 30 Ml Udc) 30 ml PO Q4H PRN PRN Reason: GI Upset Stop: 10/23/25 22:15 Bismuth Subsalicylate (Bismuth Subsalicylate 262 Mg Chew) 2 tab PO Q30M PRN PRN Reason: Loose Stool/Diarrhea Stop: 10/23/25 22:15 Haloperidol (Haloperidol 5 Mg Tab) 5 mg PO BID PRN PRN Reason: psychosis/aggression Stop: 10/23/25 22:11 Last Admin: 09/26/25 12:12 Dose: 5 mg Hydroxyzine HCl (Hydroxyzine Hcl 25 Mg Tab) 50 mg PO HSZ PRN PRN Reason: Insomnia Stop: 10/23/25 22:15 Hydroxyzine HCl (Hydroxyzine Hcl 25 Mg Tab) 25 mg PO Q4H PRN PRN Reason: Anxiety Stop: 10/23/25 22:15 Lorazepam (Lorazepam 1 Mg Tab) 1 mg PO BID PRN PRN Reason: agitation/restlessness Stop: 10/23/25 22:10 Last Admin: 09/25/25 10:46 Dose: 1 mg Magnesium Hydroxide (Magnesium Hydroxide Susp 30 Ml Udc) 30 ml PO DAILY PRN PRN Reason: Constipation Stop: 10/23/25 22:15 Olanzapine (Olanzapine 20 Mg Tablet) 20 mg PO HS BRITANY Stop: 10/26/25 21:59 Last Admin: 09/26/25 21:47 Dose: 20 mg Sodium Chloride (Sodium Chloride 0.65% Na Soln 45 Ml ([place])) 1 - 2 sprays NA PRN PRN PRN Reason: Nasal Dryness/Congestion Stop: 10/23/25 22:15 Mental Health & Subst Abuse Tx Psychiatrist Name of Psychiatrist: Taz Graf Psychiatrist's Date Of Appointment With Psychiatric Provider: 12/09/24 Time of Appointment with Psychiatrist: 10:10 Psychiatric Appointment Comment: Lester Javier Carvajal, [place] Therapist Name of Therapist: N/A Packing Room Inspector Name of Packing Room Inspector: N/A Post Discharge Appointments Primary Care Physician Name Of Family Doctor/PCP: Dr. [facility] Date of Future Appointment with PCP: 10/03 Time of Appointment with PCP: 3pm Contact Information Discharge Discharge [address]: [address] [place] [id number]
--- NOTE | 2025-09-28 09:11 | Discharge Summary ---
Date of Service September 28, 2025 History of Present Illness Haider presents for psychiatric admission on an involuntary commitment following concerns for repeated ED visits over the last 3 days, insomnia, increased religion beliefs, hallucinations, paranoia and delusions in the context of social media triggers and sleep disturbance. Review of his ED notes over the past three days are notable for fears that the FBI has been poisoning him, worried he may have fathered children during high school that he doesn't know about, panic attacks, fear his son had been poisoned, and hearing the voice of God. Today he reports that his current difficulties began approximately a week ago when he saw pictures on Facebook of people he recognized which triggered memories of past relationships and led him to wonder if those experiences were "done on purpose"and " intentionally to mess with my head later on". He states he has decided to "delete Facebook and just live my life" as a result. Haider has been experiencing significant insomnia for about 1 week prior to admission sleeping only a couple of hours per night with last night being the first full night of sleep he's had after taking prn doses of ativan and haldol. He reports increased anxiety during this period of insomnia. He denies any history of depression stating "I do not get like, depressed and have bad thoughts or anything. I just usually work with my life". He also denies any prior episodes of insomnia or psychiatric history describing this is his first experience with such symptoms. He denies any confusion with his poor sleep. He attributes his distress to looking through Facebook and seeing content related to "the kind of life I used to live" and realizing "there is kids out there that I will probably never know" which he believes "set me off". However reflects that he feels like he is just going to move past this now. He reports no other recent stressors besides discovering this content on social media. When asked about references to discussions he had with the ED case management about a friend who recently he states this was "a few years back" and does not identify this is a current stressor. Asked about recent increase in religion beliefs and hearing the voice of God he notes "I do not remember saying that" and denies any current religion beliefs. He expresses concerns about possibly having diabetes referencing that his primary care provider might be concerned about this and that his grandmother and maybe mother might have had diabetes. However he does not identify any current physical symptoms or issues that he is having besides the poor sleep. He denies any history of substance use disorder stating he quit drinking alcohol "a few months ago" after previously drinking "a few days a week". He denies any history of IV drug use nor any reason to suspect he could have ever been exposed to HIV or syphilis or other infectious diseases. He denies any symptoms of depression nor suicidal thoughts nor homicidal thoughts. He denies any side effects from the medication last night and is glad to have slept. He references that he might prefer not to take medication but is agreeable to trying olanzapine tonight and having Ativan available as needed as he wants to continue to sleep. He is not currently prescribed any psychiatric medications. Psychiatric ROS notable for no current nor history of symptoms of maribell, psychosis, PTSD, OCD nor eating disorder. Additional information per ED CM notes on 09/23/2025: "Met with patient to complete MH evaluation. Patient presented to ED with his father. He reports he was driving to work and began feeling anxious, panicked and had numbness to his hands and feet. He began having chest pain, and an ambulance was called. Patient states he has been to the ED the last three days with paranoia and anxiety. Patient very slow to answer, disorganized thoughts, and maintained prolonged eye contact. Patient expressed frustration when asked questions. He reports no previous MH history. He has no diagnosis. No previous inpatient treatment. Patients father answered many questions asked of patient. When asked who patient lives with he named his step son and his , but needed guidance with mentioning his other three children. Patient denies any D/A use. No medication. No outside providers. Patient reports no legal issues. When asked about stressors patient began to panic, stating he needed time to think. Patients father stated he believes patient has been contacted on facebook by an individual who claims patient is her father. This has been causing issues between patient and his . Patient denies any SIB. No SI. No HI. He denies any health issues. He is unsure of a mental health history within his family. Patient denies aggression/violence. Patient reports a poor appetite. He states he has not been sleeping and is unsure when the last time he slept was. He states he has not been sleeping because he has been unable to shut his mind off. Patient reports feeling that his mind is wondering off, and that he cannot keep his thoughts straight. He reports paranoia, and feeling that someone is out to get him. Patient made mention of a friend Terrence who he believes set up a satanic cult that has been screwing with his head. He believes Terrence and his cult are attacking him on facebook, and are sharing pictures of kids online who look like him. Patient reports he has been doing a lot of reading in regards to buddhist, and that he has been hearing spiritual voices. Patient reports the voices tell him to pray to God with all your heart and soul, and he repeated this three times. When asked if the voices are telling him to hurt himself or someone else, patient laughed and stated I am God. Patient denies access to any guns/weapons. Patient reported feeling very overwhelmed and anxious, he asked for medication to help him relax and sleep. Patient feels he is in need of inpatient treatment for his mental health at this time. He has had no recent travel. No illnesses or diseases. " and "Following discussion with ED /[address] [place] [address] Liaison/patient's family, it became clear that Oliverio was not voluntary for inpatient psychiatric treatment as originally thought. It appears that his paranoia and confusion have worsened throughout his ED course. Involuntary commitment/302 was petitioned for by this human services case manager encompassing concerns from the last three days of ED presentations: "Oliverio has presented to the Emergency Department three times over the last three consecutive days (Nov. , , and ) with complaints related to anxiety and paranoia. He holds persecutory delusions regarding the FBI and family friends being out to get him. He recently found out distressing news regarding parenting a child and has been spiraling since. He carries no mental health diagnoses, including psychosis. Beto family is extremely concerned about his acute change in personality and behavior. While initially requesting help and inpatient treatment, he grew increasingly paranoid and suspicious. He is forgetful of information and slow to respond to questions. Oliverio has had three medical workups at this point including a CT scan of his head. No medical abnormalities were found. On Tuesday, Oliverio was convinced that he was being poisoned and needed to keep running until the poison was out of his body. He has been sending family and friends text messages showing increased religion preoccupation and persecutory delusions. It is the opinion of this petitioner that Oliverio is experiencing psychosis with marked decompensation and will be at imminent risk of or serious bodily injury without the continued care and supervision of others. Having never experienced psychosis before, psychiatric intervention is necessary. Oliverio reports that prior to today, he was unsure wh en the last time he slept was. He reports he hasnt been eating and when he checked in on September 21, it was because he believed he was about to and was being poisoned. He attributed his friends recent to being murdered by the FBI and believed they were coming after him next. He notes he feels he was poisoned at a bar in May but was manipulated into thinking there was nothing wrong with him. Today, he was driving to work and called 911 due to anxiety and panic. He states he has been hearing spiritual voices telling him pray to God with all your heart and soul. When asked if the voices tell him to do anything else, he responded, I am God." Physical Exam Mental Examination Appearance: Well Groomed (not shaved but otherwise appropriate grooming) Eye Contact: Direct Eye Contact Motor Behavior: Pacing Speech: Normal Mood: Anxious (but "better") Affect: Stable Thought Process: Slowed Thinking Judgement: Good Psychiatric Orientation: alert, oriented to person, oriented to place, oriented to time and cooperative Apperance: appropriately dressed and appropriately groomed Eye Contact: good eye contact Motor Behavior: no abnormal motor movements Speech: normal rate/rhythm/volume of speech Affect: euthymic affect Mood: no depressed mood and no anxious mood Thought Process: clear/coherent thought process Thought Content: reality based without delusions; not paranoid (poisoning), no cognitive distortions, no delusions (reported beliefs about being poisoned), no thought insertion and no hopelessness Suicidal Thoughts: denies suicidal thoughts, denies suicidal plan and denies suicidal intent Homicidal Thoughts: denies homicidal thoughts Hallucinations: no auditory hallucinations and no visual hallucinations Cognition: recent memory grossly intact, remote memory grossly intact, attention grossly intact and language grossly intact Estimated Intelligence: consistent with education level Insight: + fair insight Judgment: good judgement Vital Signs (Past 24 Hours) Last Vital Signs Temp 36.2 C L 09/28/25 06:00 Pulse 99 H 09/28/25 06:13 Resp 16 09/28/25 06:00 BP 130/78 09/28/25 06:13 Pulse Ox 97 09/27/25 06:31 O2 Del Method Room Air 09/27/25 06:31 Principal Diagnosis Panic Disorder Psychiatric Data See daily stay summary. In short, safety was maintained and the patient was cooperative with care. Medication changes included [] and they tolerated this well. A family session was [held] and safety plan was completed prior to discharge. Day of Discharge Assessment Today the patient voices readiness for discharge. They note improvement in mood and deny thoughts to harm self or others. Thoughts remain organized and they are improved from admission. There is no evidence of psychosis. They agree to take mediations as prescribed and keep follow-up appointments. They are stable for discharge to outpatient level of care. Transition of Care Transition Of Care Record: was reviewed with the patient Advance Directives Advance Directives Information Provided: Yes Advance Directives: No Mental Health Advance Directive: No Advance Directives on File: No Living Will: No Power of Social Director: No Advance Directives Reason:: Declines as Mental Health Visit. Suicide Risk Level Suicide Risk Level: Low (q15 min observation checks) Suicide Risk Level Comments: Patient denied any prior or current suicidal ideation. He is future oriented and there is no evidence of psychosis. Risk Factors Assessment Male: Yes : Yes Do You Have Access To A Gun?: No Health Problems: No Mental Health Diagnoses: Yes Substance Use Disorders: No Previous Attempt: No Family History of Suicide: No Previous Psychiatric Hospitalization: No Hopelessness: No Protective Factors Assessment Orthodoxy Beliefs: Yes : Yes Responsible for Young Children: Yes Employed: Yes Stable Relationships: Yes Supportive Family: Yes Discharge Data Procedures Performed B12 given on discharge day due to level below 300. Educated about maintaining level at 400-900 to prevent neuropsychiatric symptoms. Lab Results 09/23/25 09/23/25 09/23/25 11:59 12:26 12:56 WBC 8.45 RBC 5.48 Hgb 15.7 Hct 44.7 MCV 81.6 MCH 28.6 MCHC 35.1 RDW Std Deviation 36.0 L RDW Coeff of Delphine 12.2 Plt Count 279 MPV 10.0 Immature Gran % (Auto) 0.4 Neut % (Auto) 71.8 Lymph % (Auto) 18.3 [place] % (Auto) 8.6 Eos % (Auto) 0.1 Baso % (Auto) 0.8 Neut # (Auto) 6.06 Lymph # (Auto) 1.55 [place] # (Auto) 0.73 H Eos # (Auto) 0.01 Baso # (Auto) 0.07 Immature Gran # (Auto) 0.03 ESR Sodium 137 Potassium 3.7 Chloride 104 Carbon Dioxide 21 Anion Gap 12 H BUN 16 Creatinine 1.08 Est Cr Clr Drug Dosing Not Reportable eGFR 86.78 BUN/Creatinine Ratio 14.8 Glucose 91 Estimat Average Glucose Hemoglobin A1c Calcium 9.8 Total Bilirubin 0.7 AST 16 ALT 17 Alkaline Phosphatase 33 L Troponin I High Sens 3.0 C-Reactive Protein Total Protein 7.6 Albumin 4.7 Globulin 2.9 Albumin/Globulin Ratio 1.6 Triglycerides Cholesterol LDL Cholesterol, Calc VLDL Cholesterol, Calc HDL Cholesterol Cholesterol/HDL Ratio Vitamin B12 25-OH Vitamin D Total Folate TSH 1.247 Urine Color Yellow Urine Appearance Clear Urine pH 6.0 Ur Specific [place] 1.019 Urine Protein Negative Urine Glucose (UA) Negative Urine Ketones Trace H Urine Blood Negative Urine Nitrite Negative Urine Bilirubin Negative Urine Urobilinogen Negative Ur Leukocyte Esterase Negative Urine Comment Salicylates < 3.0 L Urine Opiates Screen Neg Ur Methadone, Qual Neg Urine Fentanyl Screen Neg Acetaminophen < 3 L Urine Barbiturates Neg Ur Phencyclidine (PCP) Neg U Amphetamin/Meth Scrn Neg MDMA (Ecstasy) Screen Neg U Benzodiazepines Scrn Neg Ur Cocaine Metabolite Neg U Marijuana (THC) Screen Neg Ethyl Alcohol mg/dL < 10.0 Arsenic <3 Lead <1.0 Mercury <4 Anaplasma Smear Babesia Smear Babesia microti DNA PCR Lyme Disease Screen SARS-CoV-2, RNA, NAAT NEGATIVE 09/23/25 09/25/25 21:17 08:04 WBC RBC Hgb Hct MCV MCH MCHC RDW Std Deviation RDW Coeff of Delphine Plt Count MPV Immature Gran % (Auto) Neut % (Auto) Lymph % (Auto) [place] % (Auto) Eos % (Auto) Baso % (Auto) Neut # (Auto) Lymph # (Auto) [place] # (Auto) Eos # (Auto) Baso # (Auto) Immature Gran # (Auto) ESR 15 Sodium Potassium Chloride Carbon Dioxide Anion Gap BUN Creatinine Est Cr Clr Drug Dosing eGFR BUN/Creatinine Ratio Glucose Estimat Average Glucose 114 Hemoglobin A1c 5.6 Calcium Total Bilirubin AST ALT Alkaline Phosphatase Troponin I High Sens C-Reactive Protein < 0.50 Total Protein Albumin Globulin Albumin/Globulin Ratio Triglycerides 218 H Cholesterol 209 H LDL Cholesterol, Calc 123 VLDL Cholesterol, Calc 44 H HDL Cholesterol 42 Cholesterol/HDL Ratio 5.0 Vitamin B12 277 25-OH Vitamin D Total 15.5 L Folate 20.53 TSH Urine Color Urine Appearance Urine pH Ur Specific [place] Urine Protein Urine Glucose (UA) Urine Ketones Urine Blood Urine Nitrite Urine Bilirubin Urine Urobilinogen Ur Leukocyte Esterase Urine Comment Salicylates Urine Opiates Screen Ur Methadone, Qual Urine Fentanyl Screen Acetaminophen Urine Barbiturates Ur Phencyclidine (PCP) U Amphetamin/Meth Scrn MDMA (Ecstasy) Screen U Benzodiazepines Scrn Ur Cocaine Metabolite U Marijuana (THC) Screen Ethyl Alcohol mg/dL Arsenic Lead Mercury Anaplasma Smear See Comment Babesia Smear See Comment Babesia microti DNA PCR Not Detected Lyme Disease Screen Negative SARS-CoV-2, RNA, NAAT Hospital Course (1) Unspecified psychosis not due to a substance or known physiological condition: (2) Insomnia: (3) Delusions: (4) Anxiety: (5) Paranoid: Plan 09/28/25: Ready for discharge. We discussed safety concerns and follow up recommendations. He is going to stay with his and children at his parents home. B12 1000mcg IM x 1 dose now and cotinue Qmonth. Recommended to explore with PCP if there is absorption problems. However, patient believes it is related to poor diet. Start Propranolol 10mg po BID for anxiety. Patient educated about risk for bradycardia and hypotension. He has no hx of asthma and denied sx of depression at this time. Recommended to explore FREESPIRA (non medication tx for panic disorder) 09/27/2025: -Start Vit D supplement 25mcg daily 09/26/2025: -Increase olanzapine to 20mg HS 09/25/2025: -Continue current medications and tx plan 09/24/2025: [facility] on q15 min checks (behavioral with suicide precautions) for safety. The patient will participate in group, recreational, and milieu therapies and will be offered additional individual and family sessions as clinically appropriate. -Start olanzapine 10mg HS -Ativan 1mg BID prn for anxiety/restlessness -fasting lipid panel, HbA1c, Vit D, Vit B12, folate, ESR, CRP -will hold off on HIV and syphilis testing at this point as he denies any risk for exposure Mental Health & Subst Abuse Tx Psychiatrist Name of Psychiatrist: [facility] Psychiatrist's Date Of Appointment With Psychiatric Provider: 12/09/24 Time of Appointment with Psychiatrist: 10:10 Psychiatric Appointment Comment: [address], [place] Therapist Name of Therapist: [facility] Therapist's Date of Therapist Appointment: 10/01/25 Time of Therapist Appointment: 10am Therapy Appointment Comment: [address], [address], [place] [address] Log Scaler Name of Log Scaler: N/A Post Discharge Appointments Primary Care Physician Name Of Family Doctor/PCP: Dr. Huddleston [facility] Date of Future Appointment with PCP: 10/03/25 Time of Appointment with PCP: 3pm Provider Appointment Comment: [address], [place] [address] Contact Information Discharge Discharge Address: [address] [place] [id number] Discharge Plan Discharge Items Patient Disposition: Home - Self-Care Reason For Visit: UNSPECIFIED PSYCHOSIS Discharge Diagnosis: Panic Disorder Condition on Discharge: Good Activity: Resume your previous activity Non-emergency contact: Primary Care Provider and Psychiatrist Call non-emergency contact if: you have any medication questions and your symptoms worsen Follow-up/Referrals: NEL FITZGERALD [Other] Diet: Low Fat Addtl Attending Provider Instructions: SPECIAL CARE INSTRUCTIONS: 1. Follow through with your scheduled aftercare appointments. If unable to keep an appointment, please call to reschedule. 2. Take your medication only as prescribed. Medication should not be changed or stopped without the approval of your doctor. In the event of worsening symptoms or concerns about side effects, contact your doctor immediately. 3. Utilize new healthy coping skills, anger management skills, and stress management skills learned during your hospitalization. Journal feelings and process them with a support person. Identify stressors or situations that may result in relapse, deterioration or inappropriate behaviors and develop a plan to deal with those issues. 4. If your coping skills are ineffective and you are in crisis, contact your outpatient providers for direction. If unable to reach your providers, please call the [facility] CRISIS LINE AT , go to the [facility] walk-in center at [address], [address], [place], or go to the closest Emergency Room. 5. Avoid alcohol and un-prescribed drugs. 6. You have been provided with the Mental Health Advance Directives Pamphlet for your review. 7. Your condition is stable for discharge to outpatient level of care, but recovery is an ongoing process. Ifthoughts to harm yourself or others return, follow the safety plan developed during your stay. Planning for a safe return home includes securing weapons. Our treatment team recommends weaponsbe removed from the home until your outpatient provider reassesses your progress. In rare cases where the items themselvescannot be removed, guns and ammunitionshould be secured separatelyand keys stored by a reliable personoutside of the home. If you were admitted on an involuntary commitment, the police or other legal authorities may be involved in this process. AFTERCARE APPOINTMENTS: * Please call your insurance company prior to your scheduled appointment to confirm your aftercare providers are covered. Take your insurance information to your appointments. WHO TO CALL AND WHEN: Medical Emergencies: For questions or emergencies related to your hospital stay, please contact the Inpatient Behavioral Health Unit at [phone]. A dry lumber grader is on-call 06/06 for the Behavioral Health Unit for emergencies At any time you feel your situation is an emergency, you may also call 911 immediately. Pending Studies at Discharge: No Stand-Alone Forms: My [facility], Smoking Cessation Medications and DC Order Prescriptions: New haloperidol 5 mg Tablet 5 mg PO BID 30 Days Qty: 15 0RF propranolol 10 mg Tablet 10 mg PO BID Qty: 30 0RF olanzapine 20 mg Tablet 20 mg PO HS 30 Days Qty: 30 0RF cholecalciferol (vitamin D3) 25 mcg (1,000 unit) Capsule 25 mcg PO QAM 30 Days Qty: 30 0RF Discontinued None (Patient States No Home Meds) . Qty: 0 hydroxyzine HCl 25 mg tablet 25 mg PO BID PRN (Reason: anxiety) Qty: 14 0RF Discharge Orders: Discharge Order (Routine); Ordered 09/28/25 Ordered By: Gianna Bartlett/Other Patient Handouts: Understanding Anxiety Disorders, Anxiety Disorders Meds Admission Data Admit Date/Time: 09/23/25 21:10 Attending Provider: Magui Moore Admit Provider: Magui Moore Primary Care Provider: NEL FITZGERALD C[place] [address] D/C day mgmt > 30 min Patient Type Established History Problem Focused Exam Detailed Medical Decision Making Moderate Complexity Diagnoses Unspecified psychosis not due to a substance or known physiological condition F29 Insomnia G47.00 Delusions F22 Anxiety F41.9 Paranoid F22 Time Spent (min) 35
[2025-09-28] MEDS: CHOLECALCIFEROL 25 MCG (1000 UNITS) TAB PO SCH (09:15)
[2025-09-28] MEDS: PROPRANOLOL HCL 10 MG TAB PO SCH (10:42)
[2025-09-28] MEDS: CYANOCOBALAMIN 1000 MCG/ML VIAL IM ONE (10:42)
[2025-09-30 19:12] LABS: Q Fever IgG, Phase I NEGATIVE
== END 2025-09-28 11:05 | disposition home or self-care (01) | DRG 880 ==
LOC: ED 11:48 → 3S 21:10 → ED 21:46 → 3S 09-26 10:29